=== PATIENT | female | born 1995 | race Caucasian/White ===

== ENCOUNTER 2017-10-11 17:43 | Inpatient (IN) | payer OTHER ==
[2017-10-11 18:18] VITALS: BMI 25.8
--- NOTE | 2017-10-11 19:03 | HP ---
Admission ROS [facility] Allergies/Adverse Reactions: Allergies Allergy/AdvReac Type Severity Reaction Status Date / Time No Known Allergies Allergy Verified 10/11/17 19:01 History of Present Illness: 22 yo female with hx of nicotine, marijuana and opioid dependence is here for rehab. PMHX: anxiety, insomnia, denies any other medical problems. Denies suicidal / homicidal ideation or suicide attempts. Last detox 2 years ago at [facility] . Denies hx of OD, blackouts or seizures. - Ebola screening Have you been sick,other than usual withdrawal symptoms: No - Review of Systems Constitutional: Chills, Loss of Appetite, Changes in sleep, Weakness, Unintentional Wgt. Loss (10 lbs) EENT: reports: No Symptoms Reported Respiratory: reports: Cough (attributes to cigarette smoke) Cardiac: reports: No Symptoms Reported GI: reports: Poor Appetite, Poor Fluid Intake, Indigestion Musculoskeletal: reports: Back Pain Integumentary: reports: No Symptoms Reported Neuro: reports: Tingling (back and hands) Endocrine: reports: Increased Thirst Hematology: reports: No Symptoms Reported Psychiatric: reports: Orientated x3, Anxious Other Systems: Reviewed and Negative Patient History - Patient Medical History Hx Anemia: No Hx Asthma: No Hx Chronic Obstructive Pulmonary Disease (COPD): No Hx Cancer: No Hx Cardiac Disorders: No Hx Congestive Heart Failure: No Hx Hypertension: No Hx Hypercholesterolemia: No Hx Pacemaker: No HX Cerebrovascular Accident: No Hx Seizures: No Hx Dementia: No Hx Diabetes: No Hx Gastrointestinal Disorders: No Hx Liver Disease: No Hx Genitourinary Disorders: No Hx Sexually Transmitted Disorders: No Hx Renal Disease (ESRD): No Hx Thyroid Disease: No Hx Human Immunodeficiency Virus (HIV): No Hx Hepatitis C: No Hx Depression: Yes Hx Suicide Attempt: No Hx Bipolar Disorder: No Hx Schizophrenia: No - Patient Surgical History Past Surgical History: No - PPD History Previous Implant?: No Documented Results: Negative w/o proof PPD to be Administered?: Yes - Reproductive History Patient is a Female of Child Bearing Age (11 -55 yrs old): Yes Patient : No - Smoking Cessation Smoking history: Current every day smoker Have you smoked in the past 12 months: Yes Aproximately how many cigarettes per day: 3 Hx Chewing Tobacco Use: No Initiated information on smoking cessation: Yes 'Breaking Loose' booklet given: 10/11/17 - Substance & Tx. History Hx Alcohol Use: No Hx Substance Use: Yes Substance Use Type: None, Heroin, Opiates Hx Substance Use Treatment: Yes ([place] 2015) - Substances Abused Heroin Route: Inhalation Frequency: Daily Amount used: 6 Age of first use: 20 Date of Last Use: 10/01/17 Marijuana/Hashish Route: Smoking Frequency: Daily Amount used: $10 Age of first use: 20 Date of Last Use: 10/10/17 Family Disease History - Family Disease History Family Disease History: Other: Father (alive and well ), Mother (alive and well ) Admission Physical Exam [facility] - Vital Signs Vital Signs: Vital Signs - 24 hr 10/11/17 18:15 Temperature 97.8 F Pulse Rate 110 H Respiratory 18 Rate Blood Pressure 137/88 - Physical General Appearance: Yes: Appropriately Dressed, Sweating, Anxious HEENTM: Yes: EOMI, Hearing grossly Normal, Normal ENT Inspection, Normocephalic , Normal Voice, RODNEY, Pharynx Normal, Tm's normal Respiratory: Yes: Chest Non-Tender, Lungs Clear, Normal Breath Sounds, No Respiratory Distress, No Accessory Muscle Use Neck: Yes: No masses,lesions,Nodules, Trachea in good position Breast: Yes: Breast Exam Deferred Cardiology: Yes: Regular Rhythm, Regular Rate, S1, S2 Abdominal: Yes: Normal Bowel Sounds, Non Tender, Flat, Soft Genitourinary: Yes: Within Normal Limits Back: Yes: Normal Inspection Musculoskeletal: Yes: full range of Motion, Gait Steady, Pelvis Stable, Back pain Extremities: Yes: Normal Capillary Refill, Normal Inspection, Normal Range of Motion Neurological: Yes: retail pharmacist II-XII NML intact, Fully Oriented, Alert, Motor Strength 5/5 Integumentary: Yes: Normal Color, Warm, Moist Lymphatic: Yes: Within Normal Limits - Diagnostic (1) Anxious mood Current Visit: Yes Status: Acute (2) Back pain Current Visit: Yes Status: Acute (3) Opioid dependence Current Visit: Yes Status: Acute Qualifiers: Substance use status: uncomplicated Qualified Code(s): F11.20 - Opioid dependence, uncomplicated (4) Nausea Current Visit: Yes Status: Acute S Breath Alcohol Content Breath Alcohol Content: 0 Urine Pregancy Test - Result Urine Test Results: Negative- NO Line Present Urine Drug Screen - Results Drug Screen Negative: No Urine Drug Screen Results: THC-Marijuana Inpatient Rehab Admission - Initial Determination Are CD services needed?: Yes Free of communicable disease: Yes Not in need of hospitalization: Yes - Rehab Admission Criteria Previous failed treatment: Yes Poor recovery environment: Yes Comorbidities: Yes Lacks judgement: Yes Patient is meeting Inpatient Rehab admission criteria:: Yes
[2017-10-11] MEDS ORDERED: MAGNESIUM HYDROX 2400MG/30ML ORAL SUSPENSION 30 ML CUP PO PRN (19:20)
[2017-10-11] MEDS ORDERED: guaiFENesin/D-METHORPHAN HB 10 ML UNIT-DOSE CUPS PO PRN (19:20)
[2017-10-11] MEDS ORDERED: LOPERAMIDE HCL 2 MG CAPSULE PO PRN (19:20)
[2017-10-11] MEDS ORDERED: NICOTINE POLACRILEX 2 MG GUM BUC PRN (19:20)
[2017-10-11] MEDS ORDERED: P-EPHED 60MG/TRIPROLIDI 2.5MG TABLET PO PRN (19:20)
[2017-10-11] MEDS ORDERED: MAGNESIUM CITRATE 300 ML BOTTLE PO PRN (19:20)
[2017-10-11] MEDS ORDERED: MENTHOL/PHENOL 1 EACH UD MM PRN (19:20)
[2017-10-11] MEDS ORDERED: MAG HYDROX/AL HYDROX/SIMETH 30 ML UNIT-DOSE CUP PO PRN (19:20)
[2017-10-11] MEDS ORDERED: IBUPROFEN 400 MG TABLET (FP) PO PRN (19:20)
[2017-10-11] MEDS ORDERED: ACETAMINOPHEN 325 MG TABLET (FP) PO PRN (19:20)
[2017-10-11] MEDS ORDERED: CYCLOBENZAPRINE HCL 10 MG TABLET (FP) PO PRN (19:22)
[2017-10-11] MEDS ORDERED: cloNIDine HCL 0.1 MG TABLET PO ONE (19:26)
[2017-10-11] MEDS ORDERED: TUBERCULIN PPD 5 TU/0.1ML VIAL ID ONE ×2 (21:37→23:57)
[2017-10-11] MEDS: hydrOXYzine PAMOATE 50 MG CAPSULE (FP) PO PRN (22:42)
[2017-10-11] MEDS: THIAMINE HCL 100 MG TABLET (FP) PO SCH (22:43)
[2017-10-11] MEDS: MELATONIN 5 MG TABLETS PO PRN (22:43)
[2017-10-11] MEDS: ONDANSETRON *ODT* 4 MG TABLET SL PRN (23:55)
[2017-10-12] MEDS ORDERED: cloNIDine HCL 0.1 MG TABLET PO ONE (00:37)
[2017-10-12] MEDS ORDERED: hydrOXYzine PAMOATE 50 MG CAPSULE (FP) PO ONE (00:39)
--- NOTE | 2017-10-12 00:40 | PN ---
S Progress Note Note: c/o withdrawal sx's from, insomnia, bodyaches, restlessness, muscle spasm, sweats Vital Signs - 24 hr 10/11/17 10/11/17 10/12/17 18:15 21:45 00:37 Temperature 97.8 F 98.1 F 98.0 F Pulse Rate 110 H 93 H 77 Respiratory 18 18 18 Rate Blood Pressure 137/88 132/85 144/78 a/o x3 lying in bed, moist skin noted perrla 22 y.o. female with hx/o opioid dependence c/o withdrawal sx's cont flexeril, motrin and vistaril as ordered give clonidine 0.2mg now then clonidine 0.1 mg po q 6hr baclofen 10 mg po q 6 hr as ordered; psych consult for insomnia monitor closely for sedation pitcher of water at bedside for po hydration
[2017-10-12] MEDS: CYCLOBENZAPRINE HCL 5 MG TABLET PO PRN ×2 (00:44→09:14)
[2017-10-12] MEDS: BACLOFEN 10 MG TABLET (FP) PO SCH ×5 (06:47→23:26)
[2017-10-12] MEDS: cloNIDine HCL 0.1 MG TABLET PO PRN ×2 (06:47→17:18)
[2017-10-12] MEDS: hydrOXYzine PAMOATE 50 MG CAPSULE (FP) PO PRN ×2 (06:47→18:23)
[2017-10-12] MEDS: PRENATAL VITAMINS W/ FOLIC ACID TABLET (FP) PO SCH (09:14)
[2017-10-12] MEDS: ONDANSETRON *ODT* 4 MG TABLET SL PRN (09:15)
[2017-10-12] MEDS: NICOTINE 14 MG/24 HOURS TOPICAL PATCH TD SCH (09:39)
[2017-10-12 10:17] LABS: HEMATOCRIT 39.3 % (32.4-45.2); HEMOGLOBIN 13.5 GM/dL (10.7-15.3); MCH 29.6 pg (25.7-33.7); MCHC 34.3 g/dl (32.0-36.0); MEAN CELL VOLUME 86.3 fl (80-96); MEAN PLT VOLUME 8.1 fl (7.5-11.1); PLATELET COUNT 270 K/MM3 (134-434); RBC 4.55 M/mm3 (3.60-5.2); RDW 12.9 % (11.6-15.6); WHITE BLOOD COUNT 7.7 K/mm3 (4.0-10.0)
[2017-10-12 10:53] LABS: CHLORIDE 107 mmol/L (98-107); POTASSIUM 3.9 mmol/L (3.5-5.1); SODIUM 138 mmol/L (136-145)
[2017-10-12 11:03] LABS: ALBUMIN 3.9 g/dl (3.4-5.0); ALK PHOS 72 U/L (45-117); ANION GAP 5 (8-16); BILIRUBIN,TOTAL 0.7 mg/dL (0.2-1.0); BLOOD UREA NITROGEN 10 mg/dL (7-18); CALCIUM 8.8 mg/dL (8.5-10.1); CO2 26 mmol/L (21-32); CREATININE 0.8 mg/dL (0.55-1.02); GLUCOSE,RANDOM 84 mg/dL (74-106); SGOT/AST 10 U/L (15-37); SGPT/ALT 14 U/L (12-78); TOT PROT 6.9 g/dl (6.4-8.2)
--- NOTE | 2017-10-12 11:44 | EKG ---
Test Reason : Blood Pressure : / mmHG Vent. Rate : 082 BPM Atrial Rate : 082 BPM P-R Int : 176 ms QRS Dur : 084 ms QT Int : 368 ms P-R-T Axes : 027 076 026 degrees QTc Int : 429 ms NORMAL SINUS RHYTHM NORMAL ECG NO PREVIOUS ECGS AVAILABLE Confirmed by GILBERTO ELLISON MD ([id number]) on 10/12/2017 11:43:52 AM Referred By: Confirmed By:GILBERTO ELLISON MD
[2017-10-12 14:19] LABS: URINE APPEARANCE CLOUDY; URINE BILIRUBIN NEGATIVE (<2.0 mg/dL); URINE BLOOD NEGATIVE (NEGATIVE); URINE COLOR DKYELLOW; URINE GLUCOSE (UA) NEGATIVE (NEGATIVE); URINE KETONE NEGATIVE (NEGATIVE); URINE LEUK ESTERASE NEGATIVE (NEGATIVE); URINE NITRITE NEGATIVE (NEGATIVE); URINE PROTEIN NEGATIVE (NEGATIVE)
[2017-10-12] MEDS: BUPRENORPHINE/NALOXONE 2 MG/0.5 MG FILM PACKET SL SCH (18:55)
[2017-10-12] MEDS: PANTOPRAZOLE 40 MG TABLET (FP) PO SCH (18:55)
[2017-10-12] MEDS: MELATONIN 5 MG TABLETS PO PRN (21:38)
[2017-10-12] MEDS: NAPROXEN 500 MG TABLET (FP) PO SCH (21:39)
[2017-10-12] MEDS: GABAPENTIN 100 MG CAPSULE (FP) PO SCH (21:39)
[2017-10-12] MEDS: THIAMINE HCL 100 MG TABLET (FP) PO SCH (21:40)
[2017-10-13] MEDS: BACLOFEN 10 MG TABLET (FP) PO SCH ×3 (06:40→18:43)
[2017-10-13] MEDS: GABAPENTIN 100 MG CAPSULE (FP) PO SCH ×3 (06:40→21:20)
[2017-10-13] MEDS: NICOTINE 14 MG/24 HOURS TOPICAL PATCH TD SCH (10:17)
[2017-10-13] MEDS: PRENATAL VITAMINS W/ FOLIC ACID TABLET (FP) PO SCH (10:18)
[2017-10-13] MEDS: NAPROXEN 500 MG TABLET (FP) PO SCH ×2 (10:19→21:20)
[2017-10-13] MEDS: PANTOPRAZOLE 40 MG TABLET (FP) PO SCH (10:19)
[2017-10-13] MEDS: BUPRENORPHINE/NALOXONE 2 MG/0.5 MG FILM PACKET SL SCH (10:20)
--- NOTE | 2017-10-13 12:01 | HP ---
Psychiatrist Admission - Data Date of interview: 10/13/17 Admission source: [facility] Identifying data: This is the first admission to [facility] 22 yo single [place] female resides with family,unemployed,supported by family. Medical History: Low back pain. Psychiatric History: denies psychiatric history but reports some sleeping difficulties on and off. Vital Signs: Vital Signs - 24 hr 10/13/17 10/13/17 10/13/17 00:30 03:30 07:05 Temperature 98.0 F Pulse Rate 80 Respiratory 18 18 18 Rate Blood Pressure 121/73 Allergies/Adverse Reactions: Allergies Allergy/AdvReac Type Severity Reaction Status Date / Time No Known Allergies Allergy Verified 10/11/17 19:01 Date of last physical exam: 10/11/17 Concur with the findings of this exam: Yes - Substance Abuse/Tx History Hx Alcohol Use: No Hx Substance Use: Yes (heroin since 20 yo,2-3 bags daily,marijuana since 20 yo,$ 10 daily) Substance Use Type: Heroin, Marijuana Hx Substance Use Treatment: Yes (this is her first inpatient treatment) Mental Status Exam - Mental Status Exam Alert and Oriented to: Time, Place, Person Cognitive Function: Grossly Intact Patient Appearance: Well Groomed Mood: Euthymic Affect: Appropriate, Mood Congruent, Normal Range Patient Behavior: Cooperative Speech Pattern: Clear Voice Loudness: Normal Thought Process: Goal Oriented Thought Disorder: Not Present Hallucinations: Denies Suicidal Ideation: Denies Homicidal Ideation: Denies Insight/Judgement: Fair Sleep: Difficulty falling asleep Appetite: Good Muscle strength/Tone: Normal Gait/Station: Normal Psychiatric Findings - Problem List ([place] 1, 2,3) (1) Back pain Current Visit: Yes Status: Chronic (2) Opioid dependence Current Visit: Yes Status: Chronic Qualifiers: Substance use status: uncomplicated Qualified Code(s): F11.20 - Opioid dependence, uncomplicated (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
--- NOTE | 2017-10-13 12:44 | PN ---
[facility] Progress Note Note: Vital Signs Temperature 98.0 F 10/13/17 07:05 Pulse Rate 80 10/13/17 07:05 Respiratory Rate 18 10/13/17 07:05 Blood Pressure 121/73 10/13/17 07:05 O2 Sat by Pulse Oximetry (%) Laboratory Last Values WBC 7.7 K/mm3 (4.0-10.0) 10/12/17 07:30 RBC 4.55 M/mm3 (3.60-5.2) 10/12/17 07:30 Hgb 13.5 GM/dL (10.7-15.3) 10/12/17 07:30 Hct 39.3 % (32.4-45.2) 10/12/17 07:30 MCV 86.3 fl (80-96) 10/12/17 07:30 MCH 29.6 pg (25.7-33.7) 10/12/17 07:30 MCHC 34.3 g/dl (32.0-36.0) 10/12/17 07:30 RDW 12.9 % (11.6-15.6) 10/12/17 07:30 Plt Count 270 K/MM3 (134-434) 10/12/17 07:30 MPV 8.1 fl (7.5-11.1) 10/12/17 07:30 Sodium 138 mmol/L (136-145) 10/12/17 07:30 Potassium 3.9 mmol/L (3.5-5.1) 10/12/17 07:30 Chloride 107 mmol/L (98-107) 10/12/17 07:30 Carbon Dioxide 26 mmol/L (21-32) 10/12/17 07:30 Anion Gap 5 (8-16) L 10/12/17 07:30 BUN 10 mg/dL (7-18) 10/12/17 07:30 Creatinine 0.8 mg/dL (0.55-1.02) 10/12/17 07:30 Creat Clearance w eGFR > 60 (>60) 10/12/17 07:30 Random Glucose 84 mg/dL (74-106) 10/12/17 07:30 Calcium 8.8 mg/dL (8.5-10.1) 10/12/17 07:30 Total Bilirubin 0.7 mg/dL (0.2-1.0) 10/12/17 07:30 AST 10 U/L (15-37) L 10/12/17 07:30 ALT 14 U/L (12-78) 10/12/17 07:30 Alkaline Phosphatase 72 U/L (45-117) 10/12/17 07:30 Total Protein 6.9 g/dl (6.4-8.2) 10/12/17 07:30 Albumin 3.9 g/dl (3.4-5.0) 10/12/17 07:30 Urine Color Dkyellow 10/12/17 10:30 Urine Appearance Cloudy 10/12/17 10:30 Urine pH 6.0 (5.0-8.0) 10/12/17 10:30 Ur Specific [place] 1.023 (1.001-1.035) 10/12/17 10:30 Urine Protein Negative (NEGATIVE) 10/12/17 10:30 Urine Glucose (UA) Negative (NEGATIVE) 10/12/17 10:30 Urine Ketones Negative (NEGATIVE) 10/12/17 10:30 Urine Blood Negative (NEGATIVE) 10/12/17 10:30 Urine Nitrite Negative (NEGATIVE) 10/12/17 10:30 Urine Bilirubin Negative (<2.0 mg/dL) 10/12/17 10:30 Urine Urobilinogen 2.0 mg/dL (0.2-1.0) H 10/12/17 10:30 Ur Leukocyte Esterase Negative (NEGATIVE) 10/12/17 10:30 RPR Titer Nonreactive (NONREACTIVE) 10/11/17 19:20 HIV 1&2 Antibody Screen Negative 10/12/17 07:30 HIV P24 Antigen Negative 10/12/17 07:30 Labs review Patient reports she does not wish to continue Suboxone treatment. Reports improvement in withdrawal symptoms and has been attending group meetings. Reports difficulty sleeping. A/P Patient AOx3 self directing, in no apparent distress, ambulating in the unit - D/C Suboxone - Increase fluids - Patient to follow up with psych for sleeping difficulties - Continue to monitor
[2017-10-13] MEDS: THIAMINE HCL 100 MG TABLET (FP) PO SCH (21:20)
[2017-10-13] MEDS: MELATONIN 5 MG TABLETS PO PRN (21:21)
[2017-10-14] MEDS: BACLOFEN 10 MG TABLET (FP) PO SCH ×4 (00:06→18:43)
[2017-10-14] MEDS: hydrOXYzine PAMOATE 50 MG CAPSULE (FP) PO PRN ×2 (04:49→21:30)
[2017-10-14] MEDS: GABAPENTIN 100 MG CAPSULE (FP) PO SCH ×3 (06:22→21:27)
[2017-10-14] MEDS: NAPROXEN 500 MG TABLET (FP) PO SCH ×2 (10:07→21:27)
[2017-10-14] MEDS: NICOTINE 14 MG/24 HOURS TOPICAL PATCH TD SCH (10:07)
[2017-10-14] MEDS: PANTOPRAZOLE 40 MG TABLET (FP) PO SCH (10:07)
[2017-10-14] MEDS: PRENATAL VITAMINS W/ FOLIC ACID TABLET (FP) PO SCH (10:07)
[2017-10-14] MEDS: MELATONIN 5 MG TABLETS PO PRN (21:27)
[2017-10-14] MEDS: THIAMINE HCL 100 MG TABLET (FP) PO SCH (21:28)
--- NOTE | 2017-10-14 22:22 | PN ---
[facility] Progress Note Note: Psychiatry Attending's transitional studies instructor note : Called to address complaint of insomnia. Chart reviewed.Patient interviewed. Choices of hypnotics revisited with patient. Patient agrees to a trial of mirtazapine. Side effects/benefits discussed.Via telephone. Remeron 7.5 mg po hs.Ordered.
[2017-10-14] MEDS: MIRTAZAPINE 15 MG TABLET (FP) PO SCH (22:43)
[2017-10-15] MEDS: BACLOFEN 10 MG TABLET (FP) PO SCH ×4 (00:01→18:09)
[2017-10-15] MEDS: GABAPENTIN 100 MG CAPSULE (FP) PO SCH ×3 (06:41→21:21)
[2017-10-15] MEDS: PRENATAL VITAMINS W/ FOLIC ACID TABLET (FP) PO SCH (09:56)
[2017-10-15] MEDS: NAPROXEN 500 MG TABLET (FP) PO SCH ×2 (09:56→21:22)
[2017-10-15] MEDS: PANTOPRAZOLE 40 MG TABLET (FP) PO SCH (09:57)
[2017-10-15] MEDS: NICOTINE 14 MG/24 HOURS TOPICAL PATCH TD SCH (09:57)
[2017-10-15] MEDS: THIAMINE HCL 100 MG TABLET (FP) PO SCH (21:21)
[2017-10-15] MEDS: MIRTAZAPINE 15 MG TABLET (FP) PO SCH (21:22)
[2017-10-15] MEDS ORDERED: MIRTAZAPINE 15 MG TABLET (FP) PO SCH (22:00)
[2017-10-16] MEDS: BACLOFEN 10 MG TABLET (FP) PO SCH ×3 (00:15→12:06)
[2017-10-16] MEDS: GABAPENTIN 100 MG CAPSULE (FP) PO SCH ×3 (06:42→21:21)
[2017-10-16] MEDS: NAPROXEN 500 MG TABLET (FP) PO SCH ×2 (10:03→21:21)
[2017-10-16] MEDS: PRENATAL VITAMINS W/ FOLIC ACID TABLET (FP) PO SCH (10:03)
[2017-10-16] MEDS: PANTOPRAZOLE 40 MG TABLET (FP) PO SCH (10:03)
[2017-10-16] MEDS: NICOTINE 14 MG/24 HOURS TOPICAL PATCH TD SCH (12:06)
--- NOTE | 2017-10-16 12:19 | PN ---
S Progress Note Note: Patient states she does not want to take Baclofen as she does not have any muscle aches at this time. Patient is alert and oriented x 3. In NAD. Medication D/C.
--- NOTE | 2017-10-16 13:29 | PN ---
Psychiatric Progress Note Vital Signs: Vital Signs Period Temp Pulse Resp BP Sys/[place] Pulse Ox Last 24 Hr 97.7 F 83 18-18 114/79 Date of Session: 10/16/17 Chief Complaint:: Rod not sleeping,it takes time to fall asleep,my sleep pattern is interrupt HPI: Patient addressed Opioid dependence comorbid with Substance induced sleep disorder. ROS: unremarkable Current Medications: Active Medications Generic Name Dose Route Start Last Admin Trade Name Freq PRN Reason Stop Dose Admin Acetaminophen 650 mg 10/11/17 19:20 Tylenol - PO Q4H PRN FEVER Al Hydroxide/Mg Hydroxide 30 ml 10/11/17 19:20 10/13/17 21:53 Mylanta Oral Suspension - PO 30 ml Q6H PRN Administration DYSPEPSIA Clonidine 0.1 mg 10/12/17 00:37 10/12/17 17:18 Catapres - PO 0.1 mg Q6H PRN Administration withdrawal sx's Eucalyptus/Menthol/Phenol/Sorbitol 1 each 10/11/17 19:20 Cepastat Lozenge - MM Q4H PRN SORE THROAT Gabapentin 100 mg 10/12/17 22:00 10/16/17 06:42 Neurontin - PO 100 mg TID CLARIBEL Administration Guaifenesin 10 ml 10/11/17 19:20 Robitussin Dm - PO Q6H PRN COUGH Hydroxyzine Pamoate 50 mg 10/11/17 19:20 10/14/17 21:30 Vistaril - PO 50 mg Q4H PRN Administration AGITATION Loperamide HCl 4 mg 10/11/17 19:20 Imodium - PO Q6H PRN DIARRHEA Magnesium Citrate 300 ml 10/11/17 19:20 10/14/17 18:44 Citroma - PO 300 ml Q48H PRN Administration CONSTIPATION Magnesium Hydroxide 30 ml 10/11/17 19:20 Milk Of Magnesia - PO DAILY PRN CONSTIPATION Melatonin 5 mg 10/11/17 22:00 10/14/17 21:27 Melatonin PO 5 mg HS PRN Administration INSOMNIA Mirtazapine 30 mg 10/16/17 22:00 Remeron - PO HS CLARIBEL Naproxen 500 mg 10/12/17 22:00 10/16/17 10:03 Naprosyn - PO 500 mg BID CLARIBEL Administration Nicotine 14 mg 10/12/17 10:00 04/02/18 12:06 Nicoderm Patch - TD Not Given DAILY CLARIBEL Nicotine Polacrilex 2 mg 10/11/17 19:20 10/16/17 10:03 Nicorette Gum - BUC 2 mg Q2H PRN Administration NICOTINE REPLACEMENT RX Ondansetron HCl 4 mg 10/11/17 19:25 10/12/17 09:15 Zofran Odt - SL 4 mg Q8H PRN Administration NAUSEA Pantoprazole Sodium 40 mg 10/12/17 18:45 10/16/17 10:03 Protonix - PO 40 mg DAILY CLARIBEL Administration Multivit/Folic Acid/Iron 1 tab 10/12/17 10:00 10/16/17 10:03 Vitamins (Sjr) - PO 1 tab DAILY CLARIBEL Administration Pseudoephedrine/Triprolidine 1 combo 10/11/17 19:20 Actifed - PO TID PRN NASAL CONGESTION Thiamine HCl 100 mg 10/11/17 22:00 10/15/17 21:21 Vitamin B1 - PO 100 mg HS CLARIBEL Administration Current Side Effect: No Lab tests ordered: No Lab tests reviewed: Yes Provider note:: Chart was revuewed,patient was seen in my office ,treatment plan including medication management has been discussed with the patient .She addressed ongoing sleeping difficulties,inability to fall asleep and interrupted sleep pattern.Patient reports that Remeron 7,5 mg po hs is not effective at all. Properies of Remeron has been discussed with the patient including side effects,benefits and dose adjustment.Remeron 30 mg po hs will be started tonight. Supportive therapy provided. Total face to face time:: 25 Mental Status Exam - Mental Status Exam Alert and Oriented to: Time, Place, Person Cognitive Function: Grossly Intact Patient Appearance: Well Groomed Mood: Anxious Affect: Labile Patient Behavior: Cooperative Speech Pattern: Clear Voice Loudness: Normal Thought Process: Goal Oriented Thought Disorder: Not Present Hallucinations: Denies Suicidal Ideation: Denies Homicidal Ideation: Denies Insight/Judgement: Fair Sleep: Difficulty falling asleep Appetite: Fair Muscle strength/Tone: Normal Gait/Station: Normal Psychiatric Treatment Plan - Problem List (1) Back pain Current Visit: Yes (2) Opioid dependence Current Visit: Yes Qualifiers: Substance use status: uncomplicated Qualified Code(s): F11.20 - Opioid dependence, uncomplicated
[2017-10-16] MEDS: THIAMINE HCL 100 MG TABLET (FP) PO SCH (21:20)
[2017-10-16] MEDS ORDERED: MIRTAZAPINE 30 MG TABLET (FP) PO SCH (22:00)
[2017-10-17] MEDS: GABAPENTIN 100 MG CAPSULE (FP) PO SCH (06:35)
[2017-10-17 07:12] VITALS: BP 125/83; PULSE 70; TEMP 97.1
[2017-10-17] MEDS: PRENATAL VITAMINS W/ FOLIC ACID TABLET (FP) PO SCH (10:18)
[2017-10-17] MEDS: NICOTINE 14 MG/24 HOURS TOPICAL PATCH TD SCH (10:19)
[2017-10-17] MEDS: NAPROXEN 500 MG TABLET (FP) PO SCH (10:20)
[2017-10-17] MEDS: PANTOPRAZOLE 40 MG TABLET (FP) PO SCH (10:20)
--- NOTE | 2017-10-17 12:32 | PN ---
[facility] Progress Note Note: Vital Signs Temperature 97.1 F L 10/17/17 07:11 Pulse Rate 70 10/17/17 07:11 Respiratory Rate 16 10/17/17 07:11 Blood Pressure 125/83 10/17/17 07:11 O2 Sat by Pulse Oximetry (%) Laboratory Last Values WBC 7.7 K/mm3 (4.0-10.0) 10/12/17 07:30 RBC 4.55 M/mm3 (3.60-5.2) 10/12/17 07:30 Hgb 13.5 GM/dL (10.7-15.3) 10/12/17 07:30 Hct 39.3 % (32.4-45.2) 10/12/17 07:30 MCV 86.3 fl (80-96) 10/12/17 07:30 MCH 29.6 pg (25.7-33.7) 10/12/17 07:30 MCHC 34.3 g/dl (32.0-36.0) 10/12/17 07:30 RDW 12.9 % (11.6-15.6) 10/12/17 07:30 Plt Count 270 K/MM3 (134-434) 10/12/17 07:30 MPV 8.1 fl (7.5-11.1) 10/12/17 07:30 Sodium 138 mmol/L (136-145) 10/12/17 07:30 Potassium 3.9 mmol/L (3.5-5.1) 10/12/17 07:30 Chloride 107 mmol/L (98-107) 10/12/17 07:30 Carbon Dioxide 26 mmol/L (21-32) 10/12/17 07:30 Anion Gap 5 (8-16) L 10/12/17 07:30 BUN 10 mg/dL (7-18) 10/12/17 07:30 Creatinine 0.8 mg/dL (0.55-1.02) 10/12/17 07:30 Creat Clearance w eGFR > 60 (>60) 10/12/17 07:30 Random Glucose 84 mg/dL (74-106) 10/12/17 07:30 Calcium 8.8 mg/dL (8.5-10.1) 10/12/17 07:30 Total Bilirubin 0.7 mg/dL (0.2-1.0) 10/12/17 07:30 AST 10 U/L (15-37) L 10/12/17 07:30 ALT 14 U/L (12-78) 10/12/17 07:30 Alkaline Phosphatase 72 U/L (45-117) 10/12/17 07:30 Total Protein 6.9 g/dl (6.4-8.2) 10/12/17 07:30 Albumin 3.9 g/dl (3.4-5.0) 10/12/17 07:30 Urine Color Dkyellow 10/12/17 10:30 Urine Appearance Cloudy 10/12/17 10:30 Urine pH 6.0 (5.0-8.0) 10/12/17 10:30 Ur Specific [place] 1.023 (1.001-1.035) 10/12/17 10:30 Urine Protein Negative (NEGATIVE) 10/12/17 10:30 Urine Glucose (UA) Negative (NEGATIVE) 10/12/17 10:30 Urine Ketones Negative (NEGATIVE) 10/12/17 10:30 Urine Blood Negative (NEGATIVE) 10/12/17 10:30 Urine Nitrite Negative (NEGATIVE) 10/12/17 10:30 Urine Bilirubin Negative (<2.0 mg/dL) 10/12/17 10:30 Urine Urobilinogen 2.0 mg/dL (0.2-1.0) H 10/12/17 10:30 Ur Leukocyte Esterase Negative (NEGATIVE) 10/12/17 10:30 RPR Titer Nonreactive (NONREACTIVE) 10/11/17 19:20 HIV 1&2 Antibody Screen Negative 10/12/17 07:30 HIV P24 Antigen Negative 10/12/17 07:30 patient requested to d/c mediations and continue vitamins only. Continue to monitor
[2017-10-17] MEDS ORDERED: NICOTINE POLACRILEX 2 MG GUM BUC PRN (13:00)
[2017-10-18] MEDS ORDERED: NICOTINE 14 MG/24 HOURS TOPICAL PATCH TD SCH (10:00)
== END 2017-10-17 07:35 | disposition left against medical advice (07) | DRG 770 ==
LOC: YASAS 17:43 → Y3E 19:17
PROVIDERS: ADMIT Psychiatry & Neurology Psychiatry; ATTEND Psychiatry & Neurology Psychiatry
PROC: HZ42ZZZ Group Counseling for Substance Abuse Treatment, Cognitive-Behavioral (ICD-10-PCS; principal; 2017-10-11)
DX: F11.20 Opioid dependence, uncomplicated (principal); F19.282 Other psychoactive substance dependence with psychoactive substance-induced sleep disorder; F41.9 Anxiety disorder, unspecified; R11.0 Nausea; M54.5 Low back pain; G89.29 Other chronic pain
CPT/HCPCS: 36415; 80053; 81003; 85027; 86593; 87389; 93005; 93010; J0475; J0735; Q0162